=== PATIENT | female | born 1965 | race Hispanic/Latino ===

== ENCOUNTER 2022-03-05 13:03 | Outpatient (CLI) | payer OTHER | END 2022-03-05 13:04 | disposition home or self-care (01) | LOC: BICMAMMO 13:03 | PROVIDERS: ATTEND Nurse Practitioner Family | DX: Z12.31 Encounter for screening mammogram for malignant neoplasm of breast (principal) | CPT/HCPCS: 77063; 77067 ==

== ENCOUNTER 2022-03-10 10:36 | Outpatient (CLI) | payer OTHER | END 2022-03-10 10:37 | disposition home or self-care (01) | LOC: BICULT 10:36 | PROVIDERS: ATTEND Nurse Practitioner Family | DX: M79.602 Pain in left arm (principal) ==